=== PATIENT | male | born 1955 ===

== ENCOUNTER 2017-10-31 12:14 | Emergency (ER) | payer BC, OTHER ==
[2017-10-31 12:19] VITALS: BMI 26.5
[2017-10-31 12:20] VITALS: TEMP 98.3; O2SAT 99
[2017-10-31] MEDS ORDERED: Iohexol 240 (50 ml) PO ONE (12:39)
[2017-10-31] MEDS ORDERED: Sodium Chloride 0.9% 250 ML IV SCH (12:45)
--- NOTE | 2017-10-31 12:51 | ED PDOC ---
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 Patient states that 4 months ago, he was seen by his PCP for right groin pain radiating to the lower back. He was advised to follow up with a urologist who prescribed medications and had an X-ray done. Patient was uncertain of results due to no follow up. He took ibuprofen but pain still continued and 2 months passed and patient began having bilateral upper abdominal pain, greatest in the epigastric area radiating to the upper back. He indicates the pain worsens after eating and feels as if the food might come back up. Over the past 3 days, the pain has worsened and feels weak. Denied CP, SOB, palpitation, vomiting, nausea, diarrhea, hematemesis, hematochezia, and melena. Of note, patient indicates he lost 12 pounds over the pass 3 months. PCP: Krishna Anderson Past Medical History Reviewed: Historical Data, Nursing Documentation, Vital Signs Vital Signs: Last Vital Signs Temp 98.3 F 10/31/17 12:19 Pulse 66 10/31/17 17:00 Resp 18 10/31/17 17:00 BP 138/76 10/31/17 17:00 Pulse Ox 99 10/31/17 17:03 - Medical History PMH: HTN Other PMH: Hypertriglyceridemia - Surgical History Surgical History: No Surg Hx - Family History Family History: States: Unknown Family Hx - Social History Current smoker - smoking cessation education provided: No Alcohol: None Drugs: Denies - Home Medications Home Medications: Ambulatory Orders Medication Instructions Recorded traMADol [Ultram] 50 mg PO Q6H PRN #15 tab 03/16/15 Famotidine [Pepcid] 20 mg PO DAILY PRN #10 tab 10/31/17 - Allergies Allergies/Adverse Reactions: Allergies Allergy/AdvReac Type Severity Reaction Status Date / Time No Known Allergies Allergy Verified 03/16/15 12:24 Review of Systems ROS Statement: Except As Marked, All Systems Reviewed And Found Negative Constitutional: Positive for: Weakness, Weight loss (about 12 pounds over pass 3 months). Negative for: Fever Cardiovascular: Negative for: Chest Pain, Palpitations Respiratory: Negative for: Shortness of Breath Gastrointestinal: Positive for: Abdominal Pain (epigastric area radiating to upper back). Negative for: Nausea, Vomiting, Diarrhea, Melena, Hematochezia, Hematemesis Physical Exam - Reviewed Nursing Documentation Reviewed: Yes Vital Signs Reviewed: Yes - Physical Exam Appears: Positive for: Non-toxic, No Acute Distress Head Exam: Positive for: ATRAUMATIC, NORMAL INSPECTION, NORMOCEPHALIC Skin: Positive for: Normal Color, Warm, Dry Eye Exam: Positive for: Normal appearance ENT: Positive for: Normal ENT Inspection Neck: Positive for: Normal, Painless ROM Cardiovascular/Chest: Positive for: Regular Rate, Rhythm. Negative for: Murmur Respiratory: Positive for: Normal Breath Sounds. Negative for: Wheezing, Respiratory Distress Gastrointestinal/Abdominal: Positive for: Normal Exam, Soft. Negative for: Tenderness Back: Positive for: Normal Inspection. Negative for: L CVA Tenderness, R CVA Tenderness, Vertebral Tenderness Extremity: Positive for: Normal ROM (upper/lower) Neurologic/Psych: Positive for: Alert, Oriented. Negative for: Motor/Sensory Deficits - Laboratory Results Result Diagrams: 10/31/17 13:10 10/31/17 13:10 - ECG O2 Sat by Pulse Oximetry: 99 (RA) Pulse Ox Interpretation: Normal Medical Decision Making Medical Decision Making: Initial Impression: Abdominal pain Initial Plan: CT Abd/pelvis ECG CMP Lipase Troponin CBC X-Ray Pepcid 20mg IV Iohexol 50mL PO Sodium chloride 1000mL IV Urinalysis 16:08 Chest X-Ray FINDINGS: LUNGS: No active pulmonary disease. PLEURA: No significant pleural effusion identified, no pneumothorax apparent. CARDIOVASCULAR: Normal. OSSEOUS STRUCTURES: No significant abnormalities. VISUALIZED UPPER ABDOMEN: Normal. OTHER FINDINGS: None. IMPRESSION: No active disease. 16:26 CT Abd/Pelvis FINDINGS: LOWER THORAX: A small hiatal hernia is identified with lung bases otherwise unremarkable. LIVER: Diminished hepatic attenuation is appreciated by with hepatic steatosis with 3- 4 tiny lucencies identified at the right greater than left lobes of the liver too small to characterize with liver otherwise unremarkable. Well evaluated. GALLBLADDER AND BILE DUCTS: Gallbladder is partially contracted and otherwise appears unremarkable. PANCREAS: Pancreatic duct appears upper limits normal caliber at 3.5 mm, particularly at the head and neck without focal pancreatic lesion appreciable. No choledocholithiasis. SPLEEN: Unremarkable. ADRENALS: No adrenal masses identified bilaterally. KIDNEYS AND URETERS: An interval lucency is seen exophytic off the midpole left kidney laterally measuring 3.2 x 2.2 cm compared to 2.0 x 1.6 cm previously and measuring 25 Hounsfield units. This likely reflects a complex cyst with remainder of both kidneys unremarkable appearing. VASCULATURE: A mildly atherosclerotic nonaneurysmal abdominal aorta is identified. BOWEL: Stomach is collapsed and the bowel does not appear obstructed with fecal material obscuring evaluation of large bowel somewhat. Right infrequent left colonic diverticular seen without diverticulitis. The rectum is collapsed with poor evaluation of the wall resulting. APPENDIX: Normal appendix. PERITONEUM: Unremarkable. No free fluid. No free air. LYMPH NODES: Unremarkable. No enlarged lymph nodes. BLADDER: Unremarkable. REPRODUCTIVE: Enlarged prostate gland is identified once again. BONES: No acute fracture. OTHER FINDINGS: None. IMPRESSION: 1. Hepatic steatosis. 2. Upper limits normal normal caliber pancreatic duct without pancreatic mass appreciable. No radiodense cholelithiasis identified and the region of the common bile duct appears normal caliber throughout. No radiodense choledocholithiasis. 3. Limited left colonic diverticular changes without diverticulitis. 4. Complex left renal cyst. 1630 On re-evaluation, pt. in no distress. Reports good relief of pain. Informed of results. Abd remains soft and non-tender. Pt. advised to f/u with his PMD for GI referral for possible endoscopy/ colonoscopy. Scribe Attestation: Documented by Dre Christianson acting as a scribe for [place], José Manuel E. Provider Scribe Attestation: All medical record entries made by the Scribe were at my direction and personally dictated by me. I have reviewed the chart and agree that the record accurately reflects my personal performance of the history, physical Disposition - Clinical Impression Clinical Impression: Dyspepsia - Patient ED Disposition Is Patient to be Admitted: No - Disposition Referrals: Sophie Estrada [Outside] Disposition: Routine/Home Disposition Time: 16:57 Condition: STABLE Additional Instructions: Follow up with PMD for further evaluation Return to ED immediately if symptoms worsen Prescriptions: Famotidine [Pepcid] 20 mg PO DAILY PRN #10 tab PRN Reason: Dyspepsia Instructions: Dyspepsia (DC) Forms: [facility] ([place]), [facility] ED School/Work Excuse Print Language: CITIZEN OF [place]
[2017-10-31] MEDS ORDERED: Iohexol 240 (50 ml) ONE (13:16)
[2017-10-31 13:20] LABS: BASO % 0.5 % (0.0-2.0); EOS # 0.1 K/uL (0.0-0.7); EOS % 1.4 % (0.0-4.0); HEMOGLOBIN 14.3 g/dL (12.0-18.0); LYMPH # 0.9 K/uL (1.0-4.3); LYMPH % 17.3 % (20.0-40.0); MEAN CELL VOLUME 85.8 fl (80.0-94.0); MEAN CORPUSCULAR HEMOGLOBIN 29.2 pg (27.0-31.0); MEAN CORPUSCULAR HGB CONC 34.1 g/dL (33.0-37.0); MEAN PLATELET VOLUME 8.9 fl (7.2-11.7); MONO # 0.3 K/uL (0.0-0.8); MONO % 6.4 % (0.0-10.0); NEUT % 74.4 % (50.0-75.0); RBC 4.91 Mil/uL (4.40-5.90); RED CELL DISTRIBUTION WIDTH 14.5 % (11.5-14.5); WHITE BLOOD COUNT 5.4 K/uL (4.8-10.8)
[2017-10-31 13:22] LABS: SQUAMOUS EPITHIAL < 1 /hpf (0-5); URINE BILIRUBIN NEGATIVE (NEGATIVE); URINE BLOOD NEGATIVE (NEGATIVE); URINE CLARITY CLEAR (Clear); URINE COLOR YELLOW (YELLOW); URINE GLUCOSE (UA) NEG (Normal); URINE LEUKOCYTE ESTERASE NEG Leu/uL (Negative); URINE PROTEIN NEGATIVE (NEGATIVE); URINE UROBILINOGEN 0.2-1.0 mg/dL (0.2-1.0)
[2017-10-31 13:34] LABS: ALB/GLOB RATIO 1.4 (1.0-2.1); ALBUMIN 4.3 g/dL (3.5-5.0); ALT/SGPT 34 U/L (21-72); AST/SGOT 25 U/L (17-59); BLOOD UREA NITROGEN 19 mg/dl (9-20); CALCIUM 9.5 mg/dL (8.4-10.2); GFR AFRICAN-AMERICAN > 60; GFR NON-AFRICAN AMERICAN > 60; LIPASE 148 U/L (23-300)
[2017-10-31] MEDS ORDERED: Iohexol 300 100 ML IJ ONE (15:24)
[2017-10-31] MEDS ORDERED: Sodium Chloride 0.9% 50 ML IV ONE (15:25)
--- NOTE | 2017-10-31 16:53 | CT ---
PROCEDURE: CT Abdomen and Pelvis with contrast HISTORY: epigastric abdominal pain COMPARISON: Abdomen pelvis CT without contrast 04/05/2012. TECHNIQUE: Following oral and intravenous contrast administration, a CT examination of the abdomen and pelvis performed from the domes of the diaphragms to the symphysis pubis with reformatted datasets provided not only axial but also sagittal and coronal series. Contrast dose: Omnipaque 300, 95 cc Radiation dose: Total exam DLP = 408.56 mGy-cm. This CT exam was performed using one or more of the following dose reduction techniques: Automated exposure control, adjustment of the mA and/or kV according to patient size, and/or use of iterative reconstruction technique. FINDINGS: LOWER THORAX: A small hiatal hernia is identified with lung bases otherwise unremarkable. LIVER: Diminished hepatic attenuation is appreciated by with hepatic steatosis with 3-4 tiny lucencies identified at the right greater than left lobes of the liver too small to characterize with liver otherwise unremarkable. Well evaluated. GALLBLADDER AND BILE DUCTS: Gallbladder is partially contracted and otherwise appears unremarkable. PANCREAS: Pancreatic duct appears upper limits normal caliber at 3.5 mm, particularly at the head and neck without focal pancreatic lesion appreciable. No choledocholithiasis. SPLEEN: Unremarkable. ADRENALS: No adrenal masses identified bilaterally. KIDNEYS AND URETERS: An interval lucency is seen exophytic off the midpole left kidney laterally measuring 3.2 x 2.2 cm compared to 2.0 x 1.6 cm previously and measuring 25 Hounsfield units. This likely reflects a complex cyst with remainder of both kidneys unremarkable appearing. VASCULATURE: A mildly atherosclerotic nonaneurysmal abdominal aorta is identified. BOWEL: Stomach is collapsed and the bowel does not appear obstructed with fecal material obscuring evaluation of large bowel somewhat. Right infrequent left colonic diverticular seen without diverticulitis. The rectum is collapsed with poor evaluation of the wall resulting. APPENDIX: Normal appendix. PERITONEUM: Unremarkable. No free fluid. No free air. LYMPH NODES: Unremarkable. No enlarged lymph nodes. BLADDER: Unremarkable. REPRODUCTIVE: Enlarged prostate gland is identified once again. BONES: No acute fracture. OTHER FINDINGS: None. IMPRESSION: 1. Hepatic steatosis. 2. Upper limits normal normal caliber pancreatic duct without pancreatic mass appreciable. No radiodense cholelithiasis identified and the region of the common bile duct appears normal caliber throughout. No radiodense choledocholithiasis. 3. Limited left colonic diverticular changes without diverticulitis. 4. Complex left renal cyst.
--- NOTE | 2017-10-31 16:54 | RAD ---
HISTORY: abdominal pain COMPARISON: No prior. FINDINGS: LUNGS: No active pulmonary disease. PLEURA: No significant pleural effusion identified, no pneumothorax apparent. CARDIOVASCULAR: Normal. OSSEOUS STRUCTURES: No significant abnormalities. VISUALIZED UPPER ABDOMEN: Normal. OTHER FINDINGS: None. IMPRESSION: No active disease.
[2017-10-31 17:11] VITALS: BP 138/76; PULSE 66; RESP 18
--- NOTE | 2017-11-01 10:45 | CARD ---
APPROVED REPORT EKG Measurement Heart [id number] <Conclusion> Normal sinus rhythm Normal ECG
== END 2017-10-31 17:22 | disposition home or self-care (01) ==
LOC: H.ER 12:14
DX: R10.13 Epigastric pain (principal); E78.1 Pure hyperglyceridemia; I10 Essential (primary) hypertension; K76.0 Fatty (change of) liver, not elsewhere classified; N28.1 Cyst of kidney, acquired
CPT/HCPCS: 71045; 74177; 80053; 81003; 83690; 84484; 85025; 93005; 96361; 96374; 99283; Q9966; Q9967